=== PATIENT | female | born 1980 | race Caucasian/White ===

== ENCOUNTER 2022-12-25 17:51 | Inpatient (IN) | payer OTHER, SELFPAY ==
[2022-12-25] MEDS: Lactated Ringer's 1,000 ML IV SCH (18:20)
[2022-12-25] MEDS ORDERED: Diphenoxylate HCl/Atropine Tablet PO PRN ×2 (18:42)
[2022-12-25] MEDS ORDERED: Butorphanol Tartrate 1 MG/ML VIAL SLOW IVP PRN (18:42)
[2022-12-25] MEDS ORDERED: Zolpidem Tartrate 5 MG TAB PO PRN (18:42)
[2022-12-25] MEDS ORDERED: Carboprost 250 MCG/ML AMP IM PRN (18:42)
[2022-12-25] MEDS ORDERED: Acetaminophen 500 MG TAB PO PRN (18:42)
[2022-12-25] MEDS ORDERED: HYDROcodone/Acetaminophen 5/325 mg Tablet PO PRN ×2 (18:42)
[2022-12-25] MEDS ORDERED: NS w/ Oxytocin 30 units 500 ML IV SCH ×3 (18:42)
[2022-12-25] MEDS ORDERED: Ondansetron PF 4 MG/2 ML Vial IVP PRN (18:42)
[2022-12-25] MEDS ORDERED: Lidocaine 1% (PF) 30 ML VIAL SC PRN (18:42)
[2022-12-25] MEDS ORDERED: hydrALAZINE 20 MG/ML VIAL SLOW IVP PRN (18:42)
[2022-12-25] MEDS ORDERED: Ibuprofen 800 MG TAB PO PRN (18:42)
[2022-12-25] MEDS ORDERED: Misoprostol 200 MCG TAB PR PRN (18:42)
[2022-12-25] MEDS ORDERED: Docusate 100 MG CAP PO PRN (18:42)
[2022-12-25] MEDS ORDERED: Promethazine HCl 25 MG/ML VIAL IM PRN (18:42)
[2022-12-25 18:44] VITALS: BMI 38.2
[2022-12-25 18:49] LABS: Hematocrit 33.4 % (34.9-44.5); Hemoglobin 11.2 g/dL (12.0-15.5); Mean Corpuscular HGB CONC 33.5 g/dL (32.0-36.0); Mean Corpuscular Volume 83.5 fl (81.6-98.3); Mean Platelet Volume 10.4 fl (7.4-10.4); Platelet Count 261 10x3/uL (150-450); RBC Distribution Width 12.5 % (11.5-14.5)
[2022-12-25] MEDS: Misoprostol 100 MCG TAB VAG SCH ×2 (19:10→22:38)
[2022-12-25 19:28] LABS: HBSAg Index 0.17 S/CO (0-0.99); Hep B Surf Ag - L&D Non-Reactive S/CO (NonReactive); Syphilis Antibody Nonreactive (Nonreactive); Syphilis Antibody Index 0.03 S/CO (<1.00 Non-Reactive)
[2022-12-25] MEDS ORDERED: Bupivacaine 0.25% HCL 30 ML VIAL ONE (19:47)
[2022-12-25 21:11] LABS: HIV (1/2) Antibody/Antigen Non-Reactive (NonReactive); HIV 1/2 INDEX 0.06 S/CO (<1.00)
[2022-12-25 22:18] LABS: Fetal Membranes Rupture No Membranes Rupture (No Rupture)
[2022-12-26] MEDS ORDERED: fentaNYL 50 mcg/mL 1 mL Vial SLOW IVP PRN (02:23)
[2022-12-26] MEDS: Misoprostol 100 MCG TAB VAG SCH ×2 (02:30→05:28)
[2022-12-26] MEDS ORDERED: fentaNYL/Ropivacaine Epidural 100 ML ONE (03:06)
[2022-12-26] MEDS ORDERED: Boostrix 0.5 ML (Tdap) VIAL (>/=7 yrs of age) IM ONE (13:10)
[2022-12-26] MEDS ORDERED: Misoprostol 200 MCG TAB VAG PRN (13:10)
[2022-12-26] MEDS ORDERED: Benzocaine-Menthol 82.5 ML CAN TOP PRN (13:10)
[2022-12-26] MEDS ORDERED: HYDROcodone/Acetaminophen 5/325 mg Tablet PO PRN ×2 (13:10)
[2022-12-26] MEDS ORDERED: Ondansetron PF 4 MG/2 ML Vial IVP PRN (13:10)
[2022-12-26] MEDS ORDERED: diphenhydrAMINE 25 MG CAP PO PRN (13:10)
[2022-12-26] MEDS ORDERED: Lanolin Ointment 7 GM TUBE TOP PRN (13:10)
[2022-12-26] MEDS ORDERED: Milk Of Magnesia 30 ML UDCUP PO PRN (13:10)
[2022-12-26] MEDS ORDERED: hydrALAZINE 20 MG/ML VIAL SLOW IVP PRN (13:10)
[2022-12-26] MEDS ORDERED: Bisacodyl 10 MG SUPP PR PRN (13:10)
[2022-12-26] MEDS ORDERED: Preparation H Ointment 28 GM TUBE PR PRN (13:10)
[2022-12-26] MEDS ORDERED: Zolpidem Tartrate 5 MG TAB PO PRN (13:10)
[2022-12-26] MEDS ORDERED: Witch Hazel-Glycerin 1 EACH JAR TOP PRN (13:14)
[2022-12-26] MEDS ORDERED: Acetaminophen 325 MG TAB PO PRN (13:14)
[2022-12-26] MEDS ORDERED: NS w/ Oxytocin 30 units 500 ML IV SCH (13:15)
[2022-12-26] MEDS ORDERED: Ibuprofen 800 MG TAB PO SCH (14:00)
[2022-12-26] MEDS: Docusate 100 MG CAP PO SCH (21:42)
[2022-12-27] MEDS: Ibuprofen 800 MG TAB PO SCH ×2 (01:06→09:32)
[2022-12-27 04:22] LABS: Hematocrit 32.6 % (34.9-44.5); Hemoglobin 10.7 g/dL (12.0-15.5); Mean Corpuscular HGB CONC 32.8 g/dL (32.0-36.0); Mean Corpuscular Hemoglobin 27.4 pg (27.0-33.0); Mean Corpuscular Volume 83.4 fl (81.6-98.3); Mean Platelet Volume 10.2 fl (7.4-10.4); Platelet Count 225 10x3/uL (150-450); RBC Distribution Width 12.4 % (11.5-14.5); Red Blood Cell (RBC) Count 3.91 10x6/uL (3.90-5.03); White Blood Cell (WBC) Count 13.7 10x3/uL (3.5-10.5)
[2022-12-27] MEDS: Ferrous Sulfate 325 MG TAB PO SCH ×2 (07:28→09:50)
[2022-12-27] MEDS: Lactated Ringer's 1,000 ML IV SCH (07:29)
[2022-12-27] MEDS: Misoprostol 100 MCG TAB VAG SCH (07:30)
[2022-12-27] MEDS ORDERED: Prenatal Vitamin 1 TAB PO SCH (09:00)
[2022-12-27] MEDS: Docusate 100 MG CAP PO SCH (09:32)
[2022-12-27 11:16] VITALS: BP 119/81; TEMP 98
== END 2022-12-27 15:45 | disposition home or self-care (01) | DRG 807 ==
LOC: CSHLD 17:51 → CSHPP 12-26 15:16
PROVIDERS: ADMIT Obstetrics & Gynecology; ATTEND Obstetrics & Gynecology
PROC: 10E0XZZ Delivery of Products of Conception, External Approach (ICD-10-PCS; principal; 2022-12-25)
PROC: 10907ZC Drainage of Amniotic Fluid, Therapeutic from Products of Conception, Via Natural or Artificial Opening (ICD-10-PCS; 2022-12-25)
PROC: 3E0P7VZ Introduction of Hormone into Female Reproductive, Via Natural or Artificial Opening (ICD-10-PCS; 2022-12-25)
PROC: 3E033VJ Introduction of Other Hormone into Peripheral Vein, Percutaneous Approach (ICD-10-PCS; 2022-12-25)
PROC: 0HQ9XZZ Repair Perineum Skin, External Approach (ICD-10-PCS; 2022-12-25)
DX: O42.02 Full-term premature rupture of membranes, onset of labor within 24 hours of rupture (principal); Z37.0 Single live birth; Z3A.39 39 weeks gestation of pregnancy; O70.0 First degree perineal laceration during delivery; Z20.822 Contact with and (suspected) exposure to COVID-19
CPT/HCPCS: 36415; 51702; 84112; 85027; 86780; 86850; 86900; 86901; 87340; 87389; J2590; J3010; J7120; S0020